=== PATIENT | female | born 1940 | race Caucasian/White ===

== ENCOUNTER 2016-08-10 18:26 | Inpatient (IN) | payer MEDICARE, OTHER, MEDICAID ==
[~2016-08-10] VITALS: Ht 170.2 cm; Wt 62.9 kg
[2016-08-10] MEDS ORDERED: SODIUM CHLORIDE 0.9% 100 ML IV ONE (22:44)
[2016-08-10] MEDS ORDERED: CEFTRIAXONE 1 GM VIAL ONE (22:44)
[2016-08-11] VITALS (9 sets, daily range): BP systolic 124–175; RESP 16–24; TEMP 97.4–98.9; BMI 22.8
[2016-08-11] MEDS ORDERED: BISACODYL EC 5 MG TAB PO PRN (00:05)
[2016-08-11] MEDS ORDERED: SALINE FLUSH 10 ML FLUSH PRN (00:05)
[2016-08-11] MEDS ORDERED: ALU/MAG/SIM 30 ML UDC PO PRN (00:05)
[2016-08-11] MEDS ORDERED: MAG HYDROX 30 ML UDC PO PRN (00:05)
[2016-08-11] MEDS ORDERED: BISACODYL 10 MG SUPP RECTAL PRN (00:05)
[2016-08-11] MEDS ORDERED: ONDANSETRON 4 MG VIAL IV PRN (00:05)
[2016-08-11] MEDS ORDERED: Furosemide 40 MG/4 ML VIAL ONE (03:27)
[2016-08-11] MEDS: DILAUDID 1 MG/ML AMP IV PRN (03:47)
[2016-08-11] MEDS: SODIUM CHLORIDE 0.9% FLUSH BAG 500 ML IV SCH (05:20)
[2016-08-11] MEDS: SALINE FLUSH 10 ML FLUSH SCH ×2 (08:55→20:56)
[2016-08-11] MEDS ORDERED: Furosemide 100 MG/10 ML VIAL IV STA (09:10)
[2016-08-11] MEDS: Furosemide 100 MG/10 ML VIAL IV SCH ×3 (09:27→20:57)
[2016-08-11] MEDS: FAMOTIDINE 20 MG TAB PO SCH ×2 (10:16→20:57)
[2016-08-11] MEDS: METOPROLOL XL 100 MG TAB PO SCH ×2 (10:16→20:57)
[2016-08-11] MEDS: HYDROXYUREA 500 MG CAP PO SCH (10:16)
[2016-08-11] MEDS: ISOSORBIDE MONO 60 MG TAB PO SCH (10:16)
[2016-08-11] MEDS: LEVOTHYROXINE 0.112 MG TAB PO SCH (10:16)
[2016-08-11] MEDS: FERROUS SULF 325 MG TAB PO SCH (10:16)
[2016-08-11] MEDS: GABAPENTIN 100 MG CAP PO SCH ×3 (10:16→20:57)
[2016-08-11] MEDS: CEFTRIAXONE 1 GM in SODIUM CHLORIDE 0.9% 50 ML IV SCH (10:17)
[2016-08-11] MEDS ORDERED: MISSING DOSE XX ONE (13:05)
[2016-08-11] MEDS: ACETAMINOPHEN 325 MG TAB PO PRN ×2 (13:14→19:25)
[2016-08-11] MEDS: Atorvastatin 20 MG TAB PO SCH (20:57)
[2016-08-12] VITALS (19 sets, daily range): BP systolic 119–171; RESP 16–29; TEMP 98–102.1
[2016-08-12] MEDS: ACETAMINOPHEN 325 MG TAB PO PRN (01:36)
[2016-08-12] MEDS: DILAUDID 1 MG/ML AMP IV PRN (01:54)
[2016-08-12] MEDS: PANTOPRAZOLE 40 MG TAB PO SCH (06:22)
[2016-08-12] MEDS: SODIUM CHLORIDE 0.9% FLUSH BAG 500 ML IV SCH (06:22)
[2016-08-12] MEDS: LEVOTHYROXINE 0.112 MG TAB PO SCH (06:23)
[2016-08-12] MEDS: SALINE FLUSH 10 ML FLUSH SCH ×2 (08:56→21:01)
[2016-08-12] MEDS: FERROUS SULF 325 MG TAB PO SCH (08:58)
[2016-08-12] MEDS: ISOSORBIDE MONO 60 MG TAB PO SCH (08:58)
[2016-08-12] MEDS: HYDROXYUREA 500 MG CAP PO SCH (08:58)
[2016-08-12] MEDS: FAMOTIDINE 20 MG TAB PO SCH ×2 (08:58→21:00)
[2016-08-12] MEDS: METOPROLOL XL 100 MG TAB PO SCH ×3 (08:58→21:01)
[2016-08-12] MEDS: Furosemide 100 MG/10 ML VIAL IV SCH (08:58)
[2016-08-12] MEDS: GABAPENTIN 100 MG CAP PO SCH ×4 (08:58→21:01)
[2016-08-12] MEDS ORDERED: METOLAZONE 5 MG TAB PO ONE (09:35)
[2016-08-12] MEDS: CEFTRIAXONE 1 GM in SODIUM CHLORIDE 0.9% 50 ML IV SCH (09:38)
[2016-08-12] MEDS ORDERED: NITROGLYCERIN 50 MG/250 ML 250 ML IV SCH (14:25)
[2016-08-12] MEDS ORDERED: PHARMACY TO DOSE CEFEPIME IV SCH (15:20)
[2016-08-12] MEDS ORDERED: PHARMACY TO DOSE VANCOMYCIN IV SCH (15:20)
[2016-08-12] MEDS ORDERED: ACETAMINOPHEN 325 MG TAB PO PRN (15:25)
[2016-08-12] MEDS: DUONEB INH SCH ×4 (15:55→23:29)
[2016-08-12] MEDS: ACETAMINOPHEN 650 MG SUPP RECTAL PRN (16:02)
[2016-08-12] MEDS: BUMETANIDE 2.5 MG/10 ML VIAL IV SCH ×2 (16:20→21:01)
[2016-08-12] MEDS ORDERED: VANCOMYCIN 1,250 MG in SODIUM CHLORIDE 0.9% 250 ML IV ONE (17:10)
[2016-08-12] MEDS ORDERED: ACETAMINOPHEN 1,000 MG/100 ML IV ONE (17:50)
[2016-08-12] MEDS ORDERED: ACETAMINOPHEN IV 100 ML IV ONE (18:22)
[2016-08-12] MEDS: CEFEPIME 1,000 MG in SODIUM CHLORIDE 0.9% 100 ML IV SCH (18:29)
[2016-08-12] MEDS: Atorvastatin 20 MG TAB PO SCH (21:00)
[2016-08-12] MEDS: HALOPERIDOL 5 MG/ML VIAL IV PRN (21:47)
[2016-08-13] VITALS (45 sets, daily range): BP systolic 117–166; RESP 15–29; TEMP 97.4–100.3
[2016-08-13] MEDS: DUONEB INH SCH ×6 (02:44→22:48)
[2016-08-13] MEDS: SODIUM CHLORIDE 0.9% FLUSH BAG 500 ML IV SCH (06:00)
[2016-08-13] MEDS: PANTOPRAZOLE 40 MG TAB PO SCH (07:00)
[2016-08-13] MEDS: LEVOTHYROXINE 0.112 MG TAB PO SCH (07:00)
[2016-08-13] MEDS: FAMOTIDINE 20 MG TAB PO SCH (08:46)
[2016-08-13] MEDS: SALINE FLUSH 10 ML FLUSH SCH ×2 (08:46→20:33)
[2016-08-13] MEDS: HYDROXYUREA 500 MG CAP PO SCH (08:46)
[2016-08-13] MEDS: GABAPENTIN 100 MG CAP PO SCH ×3 (08:47→20:34)
[2016-08-13] MEDS: ISOSORBIDE MONO 60 MG TAB PO SCH (08:47)
[2016-08-13] MEDS: FERROUS SULF 325 MG TAB PO SCH (08:47)
[2016-08-13] MEDS: METOPROLOL XL 100 MG TAB PO SCH ×2 (08:48→20:34)
[2016-08-13] MEDS: BUMETANIDE 2.5 MG/10 ML VIAL IV SCH ×3 (08:50→20:34)
[2016-08-13] MEDS ORDERED: METOLAZONE 5 MG TAB PO SCH (09:00)
[2016-08-13] MEDS: HALOPERIDOL 5 MG/ML VIAL IV PRN (12:15)
[2016-08-13] MEDS ORDERED: VANCOMYCIN 750 MG in SODIUM CHLORIDE 0.9% 250 ML IV ONE (13:30)
[2016-08-13] MEDS: CEFEPIME 1,000 MG in SODIUM CHLORIDE 0.9% 100 ML IV SCH (17:32)
[2016-08-13] MEDS: Atorvastatin 20 MG TAB PO SCH (20:34)
[2016-08-13] MEDS ORDERED: FAMOTIDINE 10 MG TAB PO SCH (21:00)
[2016-08-14] VITALS (33 sets, daily range): BP systolic 96–168; RESP 17–31; TEMP 98.2–100.8
[2016-08-14] MEDS: DUONEB INH SCH ×6 (03:02→22:37)
[2016-08-14] MEDS: SODIUM CHLORIDE 0.9% FLUSH BAG 500 ML IV SCH (06:58)
[2016-08-14] MEDS: PANTOPRAZOLE 40 MG TAB PO SCH (06:58)
[2016-08-14] MEDS: LEVOTHYROXINE 0.112 MG TAB PO SCH (06:58)
[2016-08-14] MEDS ORDERED: VANCOMYCIN 750 MG in SODIUM CHLORIDE 0.9% 250 ML IV ONE (08:00)
[2016-08-14] MEDS: ISOSORBIDE MONO 60 MG TAB PO SCH (09:00)
[2016-08-14] MEDS: METOPROLOL XL 100 MG TAB PO SCH (09:00)
[2016-08-14] MEDS: METOLAZONE 5 MG TAB PO SCH (09:00)
[2016-08-14] MEDS: FERROUS SULF 325 MG TAB PO SCH (09:00)
[2016-08-14] MEDS: HYDROXYUREA 500 MG CAP PO SCH (09:00)
[2016-08-14] MEDS: GABAPENTIN 100 MG CAP PO SCH ×3 (09:00→21:00)
[2016-08-14] MEDS: SALINE FLUSH 10 ML FLUSH SCH ×2 (10:03→22:35)
[2016-08-14] MEDS: BUMETANIDE 2.5 MG/10 ML VIAL IV SCH ×3 (10:11→23:57)
[2016-08-14] MEDS: CEFEPIME 1,000 MG in SODIUM CHLORIDE 0.9% 100 ML IV SCH (16:44)
[2016-08-14] MEDS: METOPROLOL 5 MG/5 ML VIAL IV SCH (20:27)
[2016-08-14] MEDS: Atorvastatin 20 MG TAB PO SCH (21:00)
[2016-08-14] MEDS ORDERED: DILTIAZEM 125 MG in DEXTROSE 125 ML IV ONE (21:15)
[2016-08-14] MEDS: CARDIZEM 1 MG/ML DRIP 125 ML IV SCH (21:30)
[2016-08-14] MEDS ORDERED: MAGNESIUM SULF 1 GM/100 ML 100 ML IV ONE (21:40)
[2016-08-14] MEDS: ACETAMINOPHEN 650 MG SUPP RECTAL PRN (21:42)
[2016-08-14] MEDS ORDERED: METOPROLOL 5 MG/5 ML VIAL IV ONE (23:25)
[2016-08-15] VITALS (71 sets, daily range): BP systolic 87–137; RESP 14–33; TEMP 98.4–99.7
[2016-08-15] MEDS: DUONEB INH SCH ×6 (02:40→23:14)
[2016-08-15] MEDS ORDERED: MISSING DOSE XX ONE ×3 (04:50→21:00)
[2016-08-15] MEDS: METOPROLOL 5 MG/5 ML VIAL IV SCH ×5 (06:00→20:16)
[2016-08-15] MEDS: LEVOTHYROXINE 0.112 MG TAB PO SCH ×2 (07:00→09:40)
[2016-08-15] MEDS: PANTOPRAZOLE 40 MG TAB PO SCH (07:00)
[2016-08-15] MEDS: SODIUM CHLORIDE 0.9% FLUSH BAG 500 ML IV SCH (07:31)
[2016-08-15] MEDS: ISOSORBIDE MONO 60 MG TAB PO SCH (09:00)
[2016-08-15] MEDS: SALINE FLUSH 10 ML FLUSH SCH ×2 (09:21→20:17)
[2016-08-15] MEDS: BUMETANIDE 2.5 MG/10 ML VIAL IV SCH ×3 (09:22→22:23)
[2016-08-15] MEDS: FERROUS SULF 325 MG TAB PO SCH (09:38)
[2016-08-15] MEDS: HYDROXYUREA 500 MG CAP PO SCH (09:39)
[2016-08-15] MEDS: GABAPENTIN 100 MG CAP PO SCH (09:39)
[2016-08-15] MEDS: METOLAZONE 5 MG TAB PO SCH (09:40)
[2016-08-15] MEDS ORDERED: *PATIENT RECEIVING TUBE FEEDS, ASSESS/ADJUST MEDICATIONS NG SCH (10:55)
[2016-08-15] MEDS ORDERED: DEXTROSE 50% SYRINGE 50 ML IV PRN (11:20)
[2016-08-15] MEDS ORDERED: GLUCAGON 1 MG VIAL IM PRN (11:20)
[2016-08-15] MEDS ORDERED: ALU/MAG/SIM 30 ML UDC NG PRN (11:25)
[2016-08-15] MEDS ORDERED: MAG HYDROX 30 ML UDC NG PRN (11:25)
[2016-08-15] MEDS ORDERED: ACETAMINOPHEN 650 MG/20.3 ML UDC PO PRN (11:25)
[2016-08-15] MEDS: METRONIDAZOLE 250 MG 500 MG in SODIUM CHLORIDE 0.9% 100 ML IV SCH ×3 (12:34→23:51)
[2016-08-15] MEDS: CARDIZEM 1 MG/ML DRIP 125 ML IV SCH (14:15)
[2016-08-15] MEDS ORDERED: AMIODARONE 150 MG in DEXTROSE 5% 100 ML IV ONE (16:50)
[2016-08-15] MEDS: AMIODARONE 450 MG in DEXTROSE 5% EXCEL 250 ML IV SCH (17:35)
[2016-08-15] MEDS: GABAPENTIN 250 MG/5 ML UDC NG SCH ×2 (17:55→20:55)
[2016-08-15] MEDS: CEFEPIME 1,000 MG in SODIUM CHLORIDE 0.9% 100 ML IV SCH (18:22)
[2016-08-15] MEDS: Atorvastatin 20 MG TAB NG SCH (20:46)
[2016-08-16] VITALS (45 sets, daily range): BP systolic 83–146; RESP 15–28; TEMP 97.8–99.8
[2016-08-16] MEDS: METOPROLOL 5 MG/5 ML VIAL IV SCH ×5 (00:05→23:50)
[2016-08-16] MEDS ORDERED: MISSING DOSE XX ONE ×2 (02:15→10:25)
[2016-08-16] MEDS: DUONEB INH SCH ×6 (02:21→23:00)
[2016-08-16] MEDS: AMIODARONE 450 MG in DEXTROSE 5% EXCEL 250 ML IV SCH (03:15)
[2016-08-16] MEDS: SODIUM CHLORIDE 0.9% FLUSH BAG 500 ML IV SCH (06:43)
[2016-08-16] MEDS: METRONIDAZOLE 250 MG 500 MG in SODIUM CHLORIDE 0.9% 100 ML IV SCH ×3 (08:12→23:49)
[2016-08-16] MEDS: LEVOTHYROXINE 0.112 MG TAB NG SCH (08:14)
[2016-08-16] MEDS: GABAPENTIN 250 MG/5 ML UDC NG SCH (08:15)
[2016-08-16] MEDS: SALINE FLUSH 10 ML FLUSH SCH ×2 (08:17→20:00)
[2016-08-16] MEDS: HYDROXYUREA 500 MG CAP NG SCH (08:20)
[2016-08-16] MEDS: LANSOPRAZOLE 30 MG SOLUTAB NG SCH (08:20)
[2016-08-16] MEDS ORDERED: FERROUS SUL NG SCH (09:00)
[2016-08-16] MEDS ORDERED: METOLAZONE 5 MG TAB NG SCH (09:00)
[2016-08-16] MEDS ORDERED: BUMETANIDE 1 MG/4 ML VIAL IV SCH (10:30)
[2016-08-16] MEDS ORDERED: DIGOXIN 0.5 MG/2 ML AMP IV ONE (10:45)
[2016-08-16] MEDS: BUMETANIDE 1 MG/4 ML VIAL IV SCH ×2 (11:46→16:31)
[2016-08-16] MEDS: CEFEPIME 1,000 MG in SODIUM CHLORIDE 0.9% 100 ML IV SCH (17:06)
[2016-08-16] MEDS: Atorvastatin 20 MG TAB NG SCH (21:04)
[2016-08-16] MEDS: ACETAMINOPHEN 650 MG/20.3 ML UDC NG PRN (21:04)
[2016-08-17] VITALS (24 sets, daily range): BP systolic 95–167; RESP 20–28; TEMP 97.3–99.7; Ht 170.2 cm; Wt 62.9 kg
[2016-08-17] MEDS: DUONEB INH SCH ×6 (02:34→22:49)
[2016-08-17] MEDS: SODIUM CHLORIDE 0.9% FLUSH BAG 500 ML IV SCH (06:00)
[2016-08-17] MEDS: LEVOTHYROXINE 0.112 MG TAB NG SCH (06:01)
[2016-08-17] MEDS: LANSOPRAZOLE 30 MG SOLUTAB NG SCH (06:01)
[2016-08-17] MEDS: METOPROLOL 5 MG/5 ML VIAL IV SCH (06:01)
[2016-08-17] MEDS: SALINE FLUSH 10 ML FLUSH SCH ×2 (08:00→19:53)
[2016-08-17] MEDS: METRONIDAZOLE 250 MG 500 MG in SODIUM CHLORIDE 0.9% 100 ML IV SCH ×2 (08:00→08:50)
[2016-08-17] MEDS ORDERED: MISSING DOSE XX ONE (08:50)
[2016-08-17] MEDS: BUMETANIDE 1 MG/4 ML VIAL IV SCH ×2 (08:51→09:00)
[2016-08-17] MEDS: HYDROXYUREA 500 MG CAP NG SCH (09:21)
[2016-08-17] MEDS ORDERED: SODIUM CHLORIDE 0.9% 1,000 ML IV SCH (10:05)
[2016-08-17] MEDS: ACETAMINOPHEN 650 MG/20.3 ML UDC NG PRN ×3 (10:56→22:34)
[2016-08-17] MEDS: METOPROLOL TART 25 MG TAB PO SCH ×2 (12:03→17:31)
[2016-08-17] MEDS: SODIUM CHLORIDE 0.9% 1,000 ML IV SCH (14:45)
[2016-08-17] MEDS: Atorvastatin 20 MG TAB NG SCH (19:53)
[2016-08-17] MEDS: METOPROLOL TART 25 MG TAB NG SCH (23:54)
[2016-08-18] VITALS (24 sets, daily range): BP systolic 100–141; RESP 18–33; TEMP 98.1–99.3
[2016-08-18] MEDS: DUONEB INH SCH ×5 (02:35→18:07)
[2016-08-18] MEDS: LANSOPRAZOLE 30 MG SOLUTAB NG SCH (05:55)
[2016-08-18] MEDS: METOPROLOL TART 25 MG TAB NG SCH ×3 (05:55→17:24)
[2016-08-18] MEDS: LEVOTHYROXINE 0.112 MG TAB NG SCH (05:55)
[2016-08-18] MEDS: SODIUM CHLORIDE 0.9% FLUSH BAG 500 ML IV SCH (05:56)
[2016-08-18] MEDS: SALINE FLUSH 10 ML FLUSH SCH ×2 (08:25→20:48)
[2016-08-18] MEDS: SODIUM CHLORIDE 0.9% 1,000 ML IV SCH (08:29)
[2016-08-18] MEDS: HYDROXYUREA 500 MG CAP NG SCH (12:04)
[2016-08-18] MEDS: Atorvastatin 20 MG TAB NG SCH (20:47)
[2016-08-18] MEDS: ACETAMINOPHEN 650 MG/20.3 ML UDC NG PRN (20:48)
[2016-08-19] VITALS (23 sets, daily range): BP systolic 122–165; RESP 18–29; TEMP 98.5–99.5
[2016-08-19] MEDS: DUONEB INH SCH ×7 (00:13→23:24)
[2016-08-19] MEDS: METOPROLOL TART 25 MG TAB NG SCH ×4 (01:55→23:31)
[2016-08-19] MEDS: SODIUM CHLORIDE 0.9% FLUSH BAG 500 ML IV SCH (06:00)
[2016-08-19] MEDS: SODIUM CHLORIDE 0.9% 1,000 ML IV SCH ×2 (06:02→16:27)
[2016-08-19] MEDS: LEVOTHYROXINE 0.112 MG TAB NG SCH (06:09)
[2016-08-19] MEDS: LANSOPRAZOLE 30 MG SOLUTAB NG SCH (06:09)
[2016-08-19] MEDS: SALINE FLUSH 10 ML FLUSH SCH ×2 (08:13→20:17)
[2016-08-19] MEDS ORDERED: MISSING DOSE XX ONE (10:45)
[2016-08-19] MEDS: HYDROXYUREA 500 MG CAP NG SCH (12:08)
[2016-08-19] MEDS: Atorvastatin 20 MG TAB NG SCH (20:17)
[2016-08-19] MEDS: ACETAMINOPHEN 650 MG/20.3 ML UDC NG PRN (20:17)
[2016-08-20] VITALS (24 sets, daily range): BP systolic 120–151; RESP 18–30; TEMP 98.3–100
[2016-08-20] MEDS: SODIUM CHLORIDE 0.9% 1,000 ML IV SCH (02:25)
[2016-08-20] MEDS: DUONEB INH SCH ×5 (02:33→18:25)
[2016-08-20] MEDS: SODIUM CHLORIDE 0.9% FLUSH BAG 500 ML IV SCH (06:00)
[2016-08-20] MEDS: LEVOTHYROXINE 0.112 MG TAB NG SCH (06:23)
[2016-08-20] MEDS: LANSOPRAZOLE 30 MG SOLUTAB NG SCH (06:23)
[2016-08-20] MEDS ORDERED: MISSING DOSE XX ONE (09:00)
[2016-08-20] MEDS: ACETAMINOPHEN 650 MG/20.3 ML UDC NG PRN (10:33)
[2016-08-20] MEDS: METOPROLOL TART 25 MG TAB NG SCH ×3 (10:33→23:36)
[2016-08-20] MEDS: HYDROXYUREA 500 MG CAP NG SCH (10:34)
[2016-08-20] MEDS: SALINE FLUSH 10 ML FLUSH SCH ×2 (10:35→20:16)
[2016-08-20] MEDS ORDERED: KAYEXOLATE 15 GM/60 ML BTL NG ONE (17:55)
[2016-08-20] MEDS: Atorvastatin 20 MG TAB NG SCH (20:16)
[2016-08-21] VITALS (8 sets, daily range): BP systolic 138–154; RESP 16–25; TEMP 97.8–99.5
[2016-08-21] MEDS: DUONEB INH SCH ×7 (00:08→22:45)
[2016-08-21] MEDS: SODIUM CHLORIDE 0.9% FLUSH BAG 500 ML IV SCH ×2 (05:11→22:59)
[2016-08-21] MEDS: LANSOPRAZOLE 30 MG SOLUTAB NG SCH (06:14)
[2016-08-21] MEDS: LEVOTHYROXINE 0.112 MG TAB NG SCH (06:14)
[2016-08-21] MEDS ORDERED: MISSING DOSE XX ONE ×3 (09:45→20:25)
[2016-08-21] MEDS: SALINE FLUSH 10 ML FLUSH SCH ×2 (10:12→20:20)
[2016-08-21] MEDS: METOPROLOL TART 25 MG TAB NG SCH (10:13)
[2016-08-21] MEDS: HYDROXYUREA 500 MG CAP NG SCH (10:26)
[2016-08-21] MEDS: SODIUM CHLORIDE 0.9% 1,000 ML IV SCH ×2 (10:30→21:07)
[2016-08-21] MEDS ORDERED: Furosemide 100 MG/10 ML VIAL IV ONE (11:25)
[2016-08-21] MEDS ORDERED: KAYEXOLATE 15 GM/60 ML BTL NG ONE (12:55)
[2016-08-21] MEDS: METOPROLOL TART 100 MG TAB NG SCH ×2 (15:23→21:36)
[2016-08-21] MEDS: Atorvastatin 20 MG TAB NG SCH (20:20)
[2016-08-21] MEDS: HALOPERIDOL 5 MG/ML VIAL IV PRN (21:07)
[2016-08-21] MEDS ORDERED: MORPHINE 2 MG/ML SYR IV ONE (21:20)
[2016-08-22] VITALS (31 sets, daily range): BP systolic 120–163; RESP 16–32; TEMP 98–99.4
[2016-08-22] MEDS: HALOPERIDOL 5 MG/ML VIAL IV PRN (03:25)
[2016-08-22] MEDS: DUONEB INH SCH ×6 (03:33→22:44)
[2016-08-22] MEDS ORDERED: DILTIAZEM 125 MG in DEXTROSE 125 ML IV PUSH ONE (04:30)
[2016-08-22] MEDS: CARDIZEM 1 MG/ML DRIP 125 ML IV SCH ×2 (04:42→11:52)
[2016-08-22] MEDS ORDERED: MORPHINE 2 MG/ML SYR IV PRN (05:40)
[2016-08-22] MEDS: LANSOPRAZOLE 30 MG SOLUTAB NG SCH (05:48)
[2016-08-22] MEDS: LEVOTHYROXINE 0.112 MG TAB NG SCH (05:48)
[2016-08-22] MEDS: SALINE FLUSH 10 ML FLUSH SCH ×2 (07:35→20:00)
[2016-08-22] MEDS: SODIUM CHLORIDE 0.9% 1,000 ML IV SCH (07:36)
[2016-08-22] MEDS ORDERED: MISSING DOSE XX ONE ×4 (08:05→20:50)
[2016-08-22] MEDS: METOPROLOL TART 100 MG TAB NG SCH ×2 (08:43→15:22)
[2016-08-22] MEDS: HYDROXYUREA 500 MG CAP NG SCH (09:00)
[2016-08-22] MEDS: DOCUSATE SOD 100 MG/10 ML UDC NG SCH ×2 (15:22→21:23)
[2016-08-22] MEDS: Atorvastatin 20 MG TAB NG SCH (21:23)
[2016-08-23] VITALS (25 sets, daily range): BP systolic 131–161; RESP 16–32; TEMP 99.1–100.1
[2016-08-23] MEDS: METOPROLOL TART 100 MG TAB NG SCH ×2 (00:15→07:35)
[2016-08-23] MEDS: CARDIZEM 1 MG/ML DRIP 125 ML IV SCH (00:20)
[2016-08-23] MEDS: DUONEB INH SCH ×3 (02:59→10:28)
[2016-08-23] MEDS: SODIUM CHLORIDE 0.9% FLUSH BAG 500 ML IV SCH (05:42)
[2016-08-23] MEDS: LANSOPRAZOLE 30 MG SOLUTAB NG SCH (06:08)
[2016-08-23] MEDS: LEVOTHYROXINE 0.112 MG TAB NG SCH (06:08)
[2016-08-23] MEDS: SALINE FLUSH 10 ML FLUSH SCH ×2 (07:24→20:15)
[2016-08-23] MEDS ORDERED: MISSING DOSE XX ONE ×3 (07:25)
[2016-08-23] MEDS: DOCUSATE SOD 100 MG/10 ML UDC NG SCH (08:41)
[2016-08-23] MEDS: HYDROXYUREA 500 MG CAP NG SCH (08:41)
[2016-08-23] MEDS ORDERED: ATROPINE 1% OP SOLN SL PRN (11:50)
[2016-08-23] MEDS ORDERED: LORAZEPAM 1 MG/0.5 ML SL PRN (11:50)
[2016-08-23] MEDS: ACETAMINOPHEN 650 MG SUPP RECTAL PRN ×2 (12:08→20:07)
[2016-08-23] MEDS: MORPHINE 20 MG/ML CONC. SL PRN ×3 (17:57→22:45)
[2016-08-24] MEDS: MORPHINE 20 MG/ML CONC. SL PRN ×6 (02:23→18:24)
[2016-08-24 02:42] VITALS: BP_SYST 117; RESP 20; TEMP 98.2
[2016-08-24 07:41] VITALS: BP_SYST 141; RESP 24; TEMP 98.9
[2016-08-24] MEDS: SALINE FLUSH 10 ML FLUSH SCH (08:00)
[2016-08-24 10:56] VITALS: BP_SYST 104; RESP 24; TEMP 99.9
[2016-08-24 13:10] VITALS: TEMP 102.4
[2016-08-24] MEDS: ACETAMINOPHEN 650 MG SUPP RECTAL PRN ×2 (13:24→17:45)
[2016-08-24 14:48] VITALS: BP_SYST 121; RESP 20; TEMP 101
[2016-08-24 16:31] VITALS: BP_SYST 121; RESP 20; TEMP 101
== END 2016-08-24 18:48 | disposition hospice, home (50) | DRG 871 ==
LOC: ENRESERVDT → ENRESERVTM → ER 18:26 → EMR 22:49 → ENPENDDIS 22:49 → 3NT 08-11 00:27 → PCU2 08-11 11:25 → ICU 08-12 16:45 → 4THE 08-21 00:40 → 4NT 08-23 16:19
PROVIDERS: ADMIT Hospitalist; ATTEND Hospitalist
CPT/HCPCS: 36415; 36430; 36600; 70450; 70551; 71010; 80048; 80053; 80202; 81001; 82607; 82728; 82803; 82947; 83540; 83605; 83735; 83880; 84100; 84439; 84443; 84466; 84484; 85007; 85014; 85018; 85027; 86850; 86900; 86901; 86923; 87040; 87077; 87088; 87186; 87493; 93005; 93306; 94640; 94762; 94799; 96374; 99223; 99231; 99232; 99233; 99238; 99291